=== PATIENT | female | born 1990 | race Caucasian/White ===

== ENCOUNTER 2023-02-16 20:56 | Emergency (ER) | payer OTHER, SELFPAY ==
[2023-02-16 21:00] VITALS: BP 112/76; PULSE 104; TEMP 36.8; O2SAT 97; BMI 42.4
--- NOTE | 2023-02-16 21:08 | ED.BACK1 ---
HPI - Back Pain/Injury General Chief Complaint: Back Pain/Injury Stated Complaint: BACK PAIN Time Seen by Provider: 02/16/23 21:05 Source: patient Mode of arrival: ambulance Limitations: no limitations History of Present Illness HPI Narrative: patient presents complaining of lower back spasm. States she was sitting at a [employer] and developed spasmodic pain across her sacral area. Denies similar history. Able to rest when not moving but has pain when she tries to sit up. Denies pain radiating into her legs. No associated fever or recent injury MD elicited complaint: Reports back pain Related Data Home Medications Medication Instructions Recorded Confirmed aripiprazole 15 mg tablet 15 mg PO DAILY 02/16/23 02/16/23 sertraline 100 mg tablet 200 mg PO Q24H 02/16/23 02/16/23 Allergies Allergy/AdvReac Type Severity Reaction Status Date / Time No Known Drug Allergies Allergy Verified 02/16/23 21:04 Review of Systems ROS Status of ROS 10 or more systems reviewed and unremarkable except as noted in history and below PFSH PFS Social History Smoking status: Never smoker Exam Constitutional Vital Signs, click to edit/add: Last Vital Signs Temp 98.2 F 02/16/23 21:00 Pulse 76 02/16/23 22:48 Resp 16 02/16/23 22:48 BP 107/68 02/16/23 22:48 Pulse Ox 99 02/16/23 22:48 O2 Del Method Room Air 02/16/23 22:48 Common normals: no apparent distress, oriented x3, healthy appearing, alert and well nourished Eye Common normals: EOMs intact bilaterally and conjunctivae normal Respiratory Common normals: normal respiratory effort, no retractions, no use of accessory muscles and clear to auscultation bilaterally Cardio Common normals: regular rate, regular rhythm, S1 normal heart sound and S2 normal heart sound GI Common normals: Normal to inspection, nondistended, normoactive bowel sounds present, soft to palpation and non-tender Back & Pelvis Common normals: no CVA tenderness Thoracic spine/upper back: normal to inspection and paraspinal muscle spasm Other: nontender. has pain when she tries to sit up . once she is sitting she experiences pain trying to lay down Extremity Common normals: normal to inspection and normal capillary refill Neuro Common normals: oriented x3, CN's II-XII intact bilaterally, moves all extremities, no focal motor deficits and no sensory deficits noted Psych Appearance: grossly normal Course Vital Signs Vital signs: Vital Signs Temperature 98.2 F 02/16/23 21:00 Pulse Rate 104 H 02/16/23 21:00 Blood Pressure 112/76 02/16/23 21:00 Pulse Oximetry 97 02/16/23 21:00 Oxygen Delivery Method Room Air 02/16/23 21:00 Temperature 98.2 F 02/16/23 21:00 Pulse Rate 76 02/16/23 22:48 Respiratory Rate 16 02/16/23 22:48 Blood Pressure 107/68 02/16/23 22:48 Pulse Oximetry 99 02/16/23 22:48 Oxygen Delivery Method Room Air 02/16/23 22:48 MDM - Back Pain/Injury MDM Narrative Medical decision making narrative: patient presents with spasmodic pain of her lower back. No injury. No radicular symptoms or loss of control or bowel or bladder. Exam unremarkable and she is pain free when lying still on the stretcher. Medicated in the department to the point that she was able to get off the stretcher without assistance ambulate in her room. diagnostic studies not performed as there was no injury and she is afebrile. Basic labs unremarkable. Discharged home with baclofen and norco and advised to followup with her doctor in 1-2 days. She was able to walk to out of the ER and to her car and did not require assistance of a wheelchair. She is to return if not able to control pain at home Lab Data Labs: Lab Results 02/16/23 Range/Units 21:28 WBC 9.3 (4.0-11.0) 10^3/uL RBC 5.10 (4.20-5.40) 10^6/uL Hgb 10.8 L (12.0-16.0) g/dL Hct 34.9 L (36.0-48.0) % MCV 68.4 L (81.0-99.0) fL MCH 21.2 L (26.7-34.0) pg MCHC 30.9 (29.9-35.2) g/dL RDW 16.1 H (11.0-15.0) % Plt Count 357 (150-450) 10^3/uL MPV 9.2 L (9.5-13.5) fL Neut % (Auto) 69.1 (43.0-75.0) % Lymph % (Auto) 21.6 (20.5-60.0) % Dougherty % (Auto) 7.1 (1.7-12.0) % Eos % (Auto) 1.5 (0.9-7.0) % Baso % (Auto) 0.4 (0.2-2.0) % Neut # (Auto) 6.4 (1.4-6.5) 10^3/uL Lymph # (Auto) 2.0 (1.2-3.8) 10^3/uL Dougherty # (Auto) 0.7 (0.3-0.8) 10^3/uL Eos # (Auto) 0.1 (0.0-0.7) 10^3/uL Baso # (Auto) 0.0 (0.0-0.1) 10^3/uL Abs Immat Gran (auto) 0.03 (0.00-0.03) 10^3/uL Imm/Tot Granulo (auto) 0.3 (0.0-0.5) % Sodium 136 (136-145) mmol/L Potassium 4.2 (3.5-5.1) mmol/L Chloride 103 (98-107) mmol/L Carbon Dioxide 23.0 (21.0-32.0) mmol/L Anion Gap 14.2 BUN 16.0 (7.0-18.0) mg/dL Creatinine 0.56 (0.55-1.02) mg/dL Est GFR ( Amer) >60 (>=60) Est GFR (Non-Af Amer) >60 (>=60) BUN/Creatinine Ratio 28.6 Glucose 85 (74-106) mg/dL Calcium 8.8 (8.5-10.1) mg/dL Discharge Plan Discharge Chief Complaint: Back Pain/Injury Clinical Impression: Spasm of muscle of lower back Patient Disposition: Home, Self-Care Time of Disposition Decision: 00:40 Condition: Fair Mode of Transportation: Private Vehicle Prescriptions / Home Meds: No Action sertraline 100 mg tablet 200 mg PO Q24H aripiprazole 15 mg tablet 15 mg PO DAILY Instructions: Muscle Spasm (ED) Additional Instructions: follow up with Dr Hamm Saturday. Return if pain not controlled Stand Alone Forms: Portal Instructions Referrals: AMANUEL HAMM [Primary Care Provider] - 1 week Discharge Date/Time: 02/17/23 01:00
--- NOTE | 2023-02-16 21:13 | PC.NURSE ---
Patient states spasm occurs with movement. Points to area top of buttocks. Denies radiation
[2023-02-16] MEDS: ORPHENADRINE 60 MG/ 2 ML VIAL IV (21:39)
[2023-02-16] MEDS: MAGNESIUM SULFATE IN WATER 50 ML IV (21:40)
[2023-02-16] MEDS: 0.9 % SODIUM CHLORIDE 1,000 ML 999 ML IV (21:40)
[2023-02-16 22:01] LABS: Basophils Percent Auto 0.4 % (0.2-2.0); Eosinophils Absolute Auto 0.1 10^3/uL (0.0-0.7); Eosinophils Percent Auto 1.5 % (0.9-7.0); Hematocrit 34.9 % (36.0-48.0); Hemoglobin 10.8 g/dL (12.0-16.0); Immature Granulocytes Abs Auto 0.03 10^3/uL (0.00-0.03); Immature Granulocytes Pct Auto 0.3 % (0.0-0.5); Lymphocytes Percent Auto 21.6 % (20.5-60.0); Mean Corpuscular HGB Conc 30.9 g/dL (29.9-35.2); Mean Corpuscular Hemoglobin 21.2 pg (26.7-34.0); Mean Corpuscular Volume 68.4 fL (81.0-99.0); Mean Platelet Volume 9.2 fL (9.5-13.5); Monocytes Absolute Auto 0.7 10^3/uL (0.3-0.8); Monocytes Percent Auto 7.1 % (1.7-12.0); Neutrophils Absolute Auto 6.4 10^3/uL (1.4-6.5); Neutrophils Percent Auto 69.1 % (43.0-75.0); Platelet Count 357 10^3/uL (150-450); Red Cell Distribution Width 16.1 % (11.0-15.0); White Blood Count 9.3 10^3/uL (4.0-11.0)
[2023-02-16 22:10] LABS: Anion Gap 14.2; BUN Creatinine Ratio 28.6; Calcium 8.8 mg/dL (8.5-10.1); Chloride 103 mmol/L (98-107); Estimated GFR (African America >60 (>=60); Estimated GFR (Non-African Ame >60 (>=60); Glucose 85 mg/dL (74-106); Potassium 4.2 mmol/L (3.5-5.1); Sodium 136 mmol/L (136-145)
[2023-02-16] MEDS: FENTANYL CITRATE/PF 100 MCG/2 ML VIAL IV (22:34)
[2023-02-16 22:48] VITALS: BP 107/68; PULSE 76; RESP 16; O2SAT 99
--- NOTE | 2023-02-16 23:20 | PC.NURSE ---
Attempted to walk patient did well then had spasm that made it difficult for her to walk.
[2023-02-16] MEDS: LORAZEPAM 2 MG/ML 1 ML VIAL 1 MG IV (23:33)
--- NOTE | 2023-02-17 00:05 | PC.NURSE ---
Attempted to get patient up again but couldn't due it due to spasm. Dr lieberman
[2023-02-17] MEDS: DIAZEPAM 5 MG TABLET 20 MG PO (00:58)
== END 2023-02-17 01:00 | disposition home or self-care (01) ==
PROVIDERS: Emergency Provider Internal Medicine; PCP Family Medicine
DX: M62.830 Muscle spasm of back (principal); Z79.899 Other long term (current) drug therapy
CPT/HCPCS: 36415; 80048; 85025; 96374; 96375; 99284